=== PATIENT | female | born 1950 | race Caucasian/White ===

== ENCOUNTER 2017-01-21 20:48 | Inpatient (IN) | payer MEDICARE ==
--- NOTE | ~2017-01-21 | DS ---
Discharge Summary [facility] [address] [place]. [address] NAME: GABY CLOUD : 52 STATUS : DIS IN PAT#: [id number] AGE: 66 ADM/REG DATE : 01/21/17 MR#: [id number] REPORT SERV DATE: 01/28/17 DICTATED BY: JAMIE DAS DATE: 01/25/17 REPORT STATUS : Draft TRANSCRIBED BY: MODL DATE: 01/25/17 ADMISSION DATE: 01/21/2017 DISCHARGE DATE: 01/25/2017 PRINCIPAL DIAGNOSIS: Acute exacerbation of chronic obstructive pulmonary disease with hypoxic respiratory failure. SECONDARY DIAGNOSES: Hypertension, tobacco abuse, grief, and history of coronary artery disease with noncardiac chest pain. HISTORY OF PRESENT ILLNESS: Please see dictation of 01/21/2017. HOSPITAL COURSE: Admitted with acute exacerbation of COPD. There was a concern for pneumonia, but no pneumonia identified on PA and lateral chest x-ray. She received steroids, aerosols, oral antibiotics. For the chest pain, efforts were made for nuclear medicine stress test; however, the patient had a history of abdominal aortic aneurysm, dobutamine was contraindicated and as she was wheezing, she did not take adenosine. The chest pain was reproducible anyway and as the risk of the test actually outweighed the benefits which had a low pretest probability for myocardial ischemia, this test would be foregone until she would follow up with her primary care provider. Her COPD moreover was seen to have been exacerbated somewhat by a beta blockade as she was taking a supratherapeutic dose of carvedilol 50 b.i.d., this was weaned and actually reduced off altogether and Cardizem was put in its place. Her wheezing improved. Her oxygenation improved. She did not require supplemental oxygen. She will be released on 01/25/2017, with a prednisone taper. Nebulized aerosol therapy was arranged for her due to hawkins concerns, Cardizem 240 b.i.d. and lisinopril 20 daily stopping the carvedilol, but she was told to discuss this further with her smoking pipe mounter Dr. Marina and after this COPD exacerbation had resolved, possible reinstitution of carvedilol could be considered as well as re- evaluation for an ischemic workup is indicated. It should be noted that her troponin I's and EKG had all been negative. With the maximum benefit of hospitalization by 01/25/2017, she was released in satisfactory condition with a low-salt low-fat diet. Activity as tolerated. Following up with Dr. Marina of Cardiology at [place] as scheduled. DICTATED BY: Britany Kelly/MADDY Jamie Das M.D. / [id number] CC: Discharge Summary [address] [address] NAME: GABY CLOUD : 52 STATUS : DIS IN PAT#: [id number] AGE: 66 ADM/REG DATE : 01/21/17 MR#: [id number] REPORT SERV DATE: 01/28/17 DICTATED BY: JAMIE DAS DATE: 01/25/17 REPORT STATUS : Draft TRANSCRIBED BY: MADDY DATE: 01/25/17 Britany Kelly M.D. Poonam Puri, MD
--- NOTE | ~2017-01-21 | HP ---
History And Physical [address] [place]. [address] NAME: PEDRO LUISAMALIA CARTYGIULIANASASKIA ZOIE : 52 STATUS : ADM IN [facility]#: [id number] AGE: 66 ADM/REG DATE : 01/21/17 MR#: [id number] REPORT SERV DATE: 01/22/17 DICTATED BY: MEGAN TANG DATE: 01/22/17 REPORT STATUS : Draft TRANSCRIBED BY: MODL DATE: 01/22/17 DATE OF ADMISSION: 01/21/2017 CHIEF COMPLAINT: A 66-year-old female, presenting with shortness of breath. HISTORY OF PRESENTING ILLNESS: The patient's history was obtained through careful interview with the patient, daughters, three granddaughters, coupled with review of [facility] medical records. The patient for about two days has had increasing shortness of breath, but today, became quite debilitating with dyspnea on exertion. She has had a cough productive of a "hint of yellow," some chest discomfort described as heaviness across her chest that is associated with coughing. Also, sister with a cough and there has been a headache that she describes as "pretty bad." She has had a chill and feeling cold, but no fevers. No lightheadedness, but she has been unsteady on her feet. No nausea or vomiting. No diarrhea. Important in the patient's history is that about two weeks ago, her , and apparently since then, the patient has had no rest and has had considerable grief and stress. REVIEW OF SYSTEMS: Otherwise, a 14-point review of systems was obtained and was negative. PAST MEDICAL HISTORY: 1. COPD. 2. Coronary artery disease. 3. Hypertension. 4. Elevated cholesterol. 5. Chronic mural thrombus. 6. Thoracic aortic aneurysm, measuring 4.3 cm, followed by Dr. Chavarria. 7. Upper GI bleed, seen by Dr. Sarah. 8. Left parietal stroke, seen on CT scan. PAST SURGICAL HISTORY: 1. Left nephrectomy, a donor to her sister. 2. Left foot surgery. ALLERGIES: NO KNOWN DRUG ALLERGIES. SOCIAL HISTORY: Quit smoking two years ago. Quit alcohol. Lives in [place], [place], with History And Physical [address] [address] NAME: AMALIA CLOUDPANKAJ LINO : 52 STATUS : ADM IN PAT#: [id number] AGE: 66 ADM/REG DATE : 01/21/17 MR#: [id number] REPORT SERV DATE: 01/22/17 DICTATED BY: MEGAN TANG DATE: 01/22/17 REPORT STATUS : Draft TRANSCRIBED BY: MADDY DATE: 01/22/17 a granddaughter. 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 FAMILY HISTORY: Brother with lung cancer. Father with heart disease and stroke. Sister with end-stage renal disease. CURRENT MEDICATIONS: Include albuterol inhaler, aspirin 81 mg p.o. daily, Coreg 50 mg p.o. b.i.d., Plavix 75 mg p.o. daily, simvastatin 20 mg p.o. daily, Spiriva inhaled daily, lisinopril tablet. PHYSICAL EXAMINATION: VITAL SIGNS: Temperature 98.1, pulse 90, blood pressure 235/102, respiratory rate 40, O2 saturation 89% on room air. GENERAL: An ill-appearing female, in evidence of distress secondary to shortness of breath. HEENT: Pupils equal, round, and reactive to light. No conjunctival pallor. No scleral icterus. Nares are patent. Oropharynx is clear of obstruction. Moist mucous membranes. NECK: Trachea midline. No thyromegaly. LYMPH: No cervical lymphadenopathy. No supraclavicular lymphadenopathy. RESPIRATORY: The patient has inspiratory and expiratory wheezes throughout, harsh rhonchi. No rales. Labored respiratory effort. CARDIOVASCULAR: Regular rate and rhythm. No murmurs, rubs, or gallops. No extremity edema is appreciated. ABDOMEN: Soft, nontender, nondistended. Normal bowel sounds auscultated throughout. No hepatosplenomegaly. DERMATOLOGICAL: Warm and dry extremities. No pallor. No cyanosis. PSYCHIATRIC: Normal affect. Good mood. Alert and oriented x3. LABORATORY DATA: ABG demonstrates a pH 7.36, a PaCO2 of 43, a PaO2 of 68, and a bicarb of 24. White blood cell count 9.4, hemoglobin 14, hematocrit 43, platelets 257. Sodium 142, potassium 4.0, chloride 109, bicarb 29, BUN 11, creatinine 3.7, glucose 95. Brain natriuretic peptide 127. Troponin negative. Liver enzymes within normal limits. STUDIES: 1. Chest x-ray by my own evaluation shows widened mediastinum, but no acute abnormality. Chronic COPD changes. 2. EKG by my own evaluation shows sinus rhythm, septal infarct changes. 3. CT scan of the brain without contrast shows no acute abnormality, old left parietal stroke seen. ASSESSMENT AND PLAN: 1. Hypoxic respiratory failure. Place on overnight BiPAP secondary to distress, but ABG does not seem to worrisome. Follow ABG. Place on BiPAP overnight for now. 2. Chronic obstructive pulmonary disease exacerbation. Place on IV Solu-Medrol, DuoNeb nebulizers, doxycycline. Check sputum culture. 3. Grief. two weeks ago. 4. Hypertensive urgency. Provide supportive care of respiratory failure. Place on p.r.n. History And Physical [address] [address] NAME: GABY CLOUD : 52 STATUS : ADM IN [facility]#: [id number] AGE: 66 ADM/REG DATE : 01/21/17 MR#: [id number] REPORT SERV DATE: 01/22/17 DICTATED BY: MEGAN TANG DATE: 01/22/17 REPORT STATUS : Draft TRANSCRIBED BY: MODBerenice DATE: 01/22/17 medications. I discussed the case with Dr. Nam, Critical Care physician. KPL/ABHILASHL Megan Tang M.D. / [id number] CC: Britany Kelly M.D.
[~2017-01-21 20:48] MED LIST: ABX PO; ASA5GR PO; ASAB PO; ASABAYER PO; BLOOD PRESSURE RX PO; COREG PO; COREG12 PO; CRESTOR20 MG PO; DULERA 200 MCG/13 GM INH; HYZAAR1 TAB PO; IVVIBRA; NORV5 PO; P10 PO; PCET PO; PR25 PO; PREDNISONE; PRILOSEC40 MG PO; PROTONIX PO; SPIRIVA INH; STRIVERDI RESPIMAT INH; SUCR PO; SYMBICORT 160/41 INH INH; SYMBICORT INH; ZOCOR PO; ZOCOR20 PO; [UNRECOGNIZED DRUG - REMARK] PO
[2017-01-21 20:49] LABS: BASOPHILS 0.6 %; BASOPHILS ABSOLUTE 0.06 10/3/uL (0.0-0.16); EOSINOPHILS 6.5 %; EOSINOPHILS ABSOLUTE 0.61 10/3/uL (0.0-0.53); HEMATOCRIT 43.4 % (36.0-48.0); IMMATURE GRANULOCYTES 0.2 %; IMMATURE GRANULOCYTES ABSOLUTE 0.02 10/3/uL (0.0-0.11); LYMPHOCYTES 23.8 %; LYMPHOCYTES ABSOLUTE 2.23 10/3/uL (0.67-4.30); MEAN CORPUS HGB CONC 32.3 g/dL (32.0-36.0); MEAN CORPUSCULAR HEMOGLOB 30.8 pg (26.0-34.0); MEAN CORPUSCULAR VOLUME 95.4 fL (80-100); MEAN PLATELET VOLUME 11.1 fL (9.2-13.0); MONOCYTES 8.3 %; MONOCYTES ABSOLUTE 0.78 10/3/uL (0.21-1.20); NEUTROPHILS 60.6 %; NEUTROPHILS ABSOLUTE 5.68 10/3/uL (2.02-8.40); PLATELET COUNT 257 10/3/uL (150-400); RBC DISTRIBUTION WIDTH 13.6 % (12.0-16.0); RED CELL COUNT 4.55 10/6/uL (4.0-5.6); WHITE BLOOD CELLS 9.4 10/3/uL (4.5-10.5)
[2017-01-21 20:50] LABS: MANUAL DIFF NO %
[2017-01-21 21:06] LABS: A/G RATIO 0.9 (0.7-1.9); ALBUMIN 3.9 G/DL (3.5-5.0); ALKALINE PHOSPHATASE 98 U/L (45-117); BUN (BLOOD UREA NITROGEN) 11 MG/DL (6-23); CHLORIDE, SERUM 109 MMOL/L (96-112); CO2 (CARBON DIOXIDE) 29 MMOL/L (24-34); CREATININE 0.72 MG/DL (0.55-1.02); GFR AFRICAN AMERICAN 102 ML/MIN (>=60); GFR NON AFRICAN AMERICAN 88 ML/MIN (>=60); GLOBULIN 4.5 G/DL (2.5-4.1); GLUCOSE, SERUM 95 MG/DL (60-99); SGOT(AST) 12 U/L (5-40); SGPT(ALT) 18 U/L (5-65); SODIUM, SERUM 142 MMOL/L (135-148); TOTAL BILIRUBIN 0.4 MG/DL (0-1.2); TOTAL PROTEIN 8.4 G/DL (6.0-8.5)
[2017-01-21] MEDS ORDERED: LISINOPRIL PO (21:07)
[2017-01-21] MEDS ORDERED: COREG25 PO (21:07)
[2017-01-21] MEDS ORDERED: PLAVIX PO (21:08)
[2017-01-21] MEDS ORDERED: ALBUTEROL0.083 % INH (21:08)
[2017-01-21] MEDS ORDERED: ZOCOR20 PO (21:08)
[2017-01-21] MEDS ORDERED: ASAB PO (21:08)
[2017-01-21] MEDS ORDERED: MAPAP SINUS PO (21:10)
[2017-01-21] MEDS ORDERED: SPIRIVA INH (21:11)
[2017-01-21 22:28] LABS: TROPONIN I <0.02 NG/ML (<0.05)
[2017-01-22 03:30] LABS: ALLENS TEST Pos; BE (BASE EXCESS) -2.4 MEQ/L (0 +/- 2.5); CARBOXYHEMOGLOBIN 0.6 % (0-3); HCO3 (ACTUAL BICARBONATE) 22.7 MEQ/L (23-27); HEMOBLOGIN CONTENT 14.5 G/DL (12-16); INSTRUMENT SERIAL # 35151; METHEMOGLOBIN 0.3 % (0-3); O2 CONTENT 19.8 VOL% (18-24); OPERATOR ID 35190; PCO2 (CO2 TENSION) 40 MMHG (35-45); PO2 (O2 TENSION) 100 MMHG (79-93); SAMPLE Arterial; pH 7.37 (7.37-7.43)
[2017-01-22 04:15] LABS: BE (BASE EXCESS) -1.5 MEQ/L (0 +/- 2.5); INSTRUMENT SERIAL # 8087; PCO2 (CO2 TENSION) 43 MMHG (35-45); PO2 (O2 TENSION) 68 MMHG (79-93); pH 7.36 (7.37-7.43)
[2017-01-22 04:16] LABS: CARBOXYHEMOGLOBIN 1.7 % (0-3); DEVICE NC; HEMOBLOGIN CONTENT 14.7 G/DL (12-16); METHEMOGLOBIN 0.1 % (0-3); O2 CONTENT 18.9 VOL% (18-24); OPERATOR ID 33449; SAMPLE Arterial
[2017-01-22 04:18] LABS: ALLENS TEST Pos; CARBOXYHEMOGLOBIN 1.6 % (0-3); HCO3 (ACTUAL BICARBONATE) 22.2 MEQ/L (23-27); HEMOBLOGIN CONTENT 14.7 G/DL (12-16); INSTRUMENT SERIAL # 8087; METHEMOGLOBIN 0.2 % (0-3); O2 CONTENT 19.4 VOL% (18-24); OPERATOR ID 33449; PCO2 (CO2 TENSION) 33 MMHG (35-45); PO2 (O2 TENSION) 76 MMHG (79-93); SAMPLE Arterial; pH 7.44 (7.37-7.43)
[2017-01-22 06:10] LABS: HEMATOCRIT 42.5 % (36.0-48.0); HEMOGLOBIN 13.9 g/dL (12.0-16.0); MEAN CORPUS HGB CONC 32.7 g/dL (32.0-36.0); MEAN CORPUSCULAR VOLUME 94.9 fL (80-100); MEAN PLATELET VOLUME 11.2 fL (9.2-13.0); PLATELET COUNT 254 10/3/uL (150-400); RBC DISTRIBUTION WIDTH 13.5 % (12.0-16.0); RED CELL COUNT 4.48 10/6/uL (4.0-5.6); WHITE BLOOD CELLS 6.7 10/3/uL (4.5-10.5)
[2017-01-22 06:11] LABS: DIFFERENTIAL ORDERED Y
[2017-01-22 06:16] LABS: INTERNATIONAL NORMAL RATI 1.1 UNITS (-); PARTIAL THROMBO TIME 28.2 SEC (22.5-37.2); PROTIME (NOT ORD) 13.9 SEC (12.0-14.5)
[2017-01-22 06:30] LABS: A/G RATIO 0.8 (0.7-1.9); ALBUMIN 3.6 G/DL (3.5-5.0); ALKALINE PHOSPHATASE 94 U/L (45-117); BUN (BLOOD UREA NITROGEN) 12 MG/DL (6-23); CALCIUM, SERUM 9.2 MG/DL (8.5-10.4); CHLORIDE, SERUM 108 MMOL/L (96-112); CO2 (CARBON DIOXIDE) 25 MMOL/L (24-34); CREATININE 0.68 MG/DL (0.55-1.02); GFR AFRICAN AMERICAN 106 ML/MIN (>=60); GFR NON AFRICAN AMERICAN 92 ML/MIN (>=60); GLOBULIN 4.8 G/DL (2.5-4.1); PHOSPHORUS, SERUM 2.9 MG/DL (2.5-4.5); SGOT(AST) 12 U/L (5-40); SGPT(ALT) 19 U/L (5-65); SODIUM, SERUM 140 MMOL/L (135-148); TOTAL BILIRUBIN 0.3 MG/DL (0-1.2); TOTAL PROTEIN 8.4 G/DL (6.0-8.5); TROPONIN I <0.02 NG/ML (<0.05); ULTRASENSITIVE TSH 0.476 MCIU/ML (0.358-3.740)
[2017-01-22 06:31] LABS: GLUCOSE, SERUM 173 MG/DL (60-99)
[2017-01-22 07:03] LABS: BAND NEUTROPHILS 7 %; LYMPHOCYTES 9 %; SEGMENTED NEUTROPHIL (0) 84 %; TOTAL NUCLEATED CELLS 100
[2017-01-22 07:04] LABS: PLATELET ESTIMATE ADQ (ADEQUATE); RBC MORPHOLOGY NORM (NORMAL)
[2017-01-22 07:26] LABS: PROCALCITONIN <0.05 ng/mL (<0.5)
[2017-01-25] MEDS ORDERED: AUG875 PO (13:00)
[2017-01-25] MEDS ORDERED: CARDCD240 PO (13:01)
[2017-01-25] MEDS ORDERED: LISINOPRIL40 MG PO (13:01)
[2017-01-25] MEDS ORDERED: PULRESP.5 INH (13:02)
[2017-01-25] MEDS ORDERED: DUONEB INH (13:03)
[2017-01-25] MEDS ORDERED: STERAPRED DS10 MG (13:04)
[2017-05-04] MEDS ORDERED: ASAB PO (18:15)
[2017-05-04] MEDS ORDERED: ALBUTEROL5 INH (18:15)
[2017-05-04] MEDS ORDERED: CARTIA XT240 MG/24 PO (18:16)
[2017-05-04] MEDS ORDERED: PLAVIX PO (18:16)
[2017-05-04] MEDS ORDERED: TYLENOL SINUS PO ×2 (18:17→18:18)
[2017-05-04] MEDS ORDERED: ZOCOR20 PO (18:18)
[2017-05-04] MEDS ORDERED: LISINOPRIL40 MG PO (18:18)
[2017-05-04] MEDS ORDERED: ANOROELLIPTA INH (18:19)
== END 2017-01-25 14:31 | disposition home or self-care (01) | DRG 189 ==
LOC: ER 20:48 → 6NO 23:25
PROVIDERS: Internal Medicine; Nurse Practitioner Acute Care
PROC: 5A09357 Assistance with Respiratory Ventilation, Less than 24 Consecutive Hours, Continuous Positive Airway Pressure (ICD-10-PCS; principal; 2017-01-21)
DX: J96.01 Acute respiratory failure with hypoxia (principal); I71.2 Thoracic aortic aneurysm, without rupture; J44.1 Chronic obstructive pulmonary disease with (acute) exacerbation; I25.10 Atherosclerotic heart disease of native coronary artery without angina pectoris; I16.0 Hypertensive urgency; F43.21 Adjustment disorder with depressed mood; E78.00 Pure hypercholesterolemia, unspecified; T44.7X5A Adverse effect of beta-adrenoreceptor antagonists, initial encounter; Z86.73 Personal history of transient ischemic attack (TIA), and cerebral infarction without residual deficits; Z90.5 Acquired absence of kidney; Z87.891 Personal history of nicotine dependence; Z79.82 Long term (current) use of aspirin; Z79.02 Long term (current) use of antithrombotics/antiplatelets
CPT/HCPCS: 36600; 70450; 71010; 78451; 78452; 80053; 82330; 82803; 82805; 82947; 83605; 83735; 83880; 84100; 84132; 84145; 84295; 84443; 84484; 85007; 85014; 85025; 85027; 85610; 85730; 87040; 87070; 87205; 87449; 93005; 93017; 94640; 94660; 94667; 94668; 96365; 96375; 99291; A9270-GY; A9502; J0360; J2920; J2930; J3475